=== PATIENT | female | born 1950 | race American Indian/Alaskan Native ===

== ENCOUNTER 2016-06-07 18:50 | Emergency (ER) | payer MEDICARE, OTHER ==
[2016-06-07] MEDS ORDERED: XYLOCAINE 1% 20 mL INFILTRATI ONE (19:07)
[2016-06-07] MEDS ORDERED: TRIPLE ANTIBIOTIC TP ONE ×2 (19:07→21:32)
[2016-06-07] MEDS ORDERED: BOOSTRIX IM ONE ×2 (19:07→21:32)
[2016-06-07] MEDS ORDERED: ANCEF IM ONE (19:08)
--- NOTE | 2016-06-07 19:09 | Emergency Department Report ---
Entered by LORI PUCKETT, acting as scribe for EDMOND FERNÁNDEZ NP. Chief Complaint: Wound/Laceration Stated Complaint: RT HAND LACERATION/TABLE SAW Time Seen by Provider: 06/07/16 18:58 - HPI History of Present Illness: 65 y/o presents right index finger laceration that occured 1 hr ago using a tablesaw. Sx include pain but pt denies being on any blood thinners. Hx includes breast cancer that started in 2000 and was in remission in 2001. no neuro or focal deficits NAD VSS Ambulatory avulsed wound bleeding controlled - ROS Review of Systems: as noted in HPI - Exam Vital Signs: Vital Signs 06/07/16 18:52 Temperature 98.4 F Pulse Rate 100 H Blood Pressure 191/118 O2 Sat by Pulse 100 Oximetry Physical Exam: as noted in HPI MSE screening note: Focused history and physical exam performed. Due to findings the following was ordered: ED Disposition for MSE Condition: Stable This documentation as recorded by the scribe,LORI PUCKETT,accurately reflects the service I personally performed and the decisions made by ,EDMOND FERNÁNDEZ NP.
[2016-06-07] MEDS ORDERED: ANCEF ONE (21:32)
[2016-06-07] MEDS ORDERED: XYLOCAINE 1% 20 mL ONE (21:32)
[2016-06-07] MEDS ORDERED: NACL 0.9% 500 ML IR ONE ×2 (22:46→23:46)
[2016-06-07] MEDS ORDERED: VALIUM PO ONE (22:56)
[2016-06-07] MEDS ORDERED: NORCO 7.5/325 PO ONE (22:56)
--- NOTE | 2016-06-07 23:42 | Emergency Department Report ---
<DEBBIE HERRERA - Last Filed: 06/08/16 00:27> - General Chief Complaint: Laceration/Recheck/Suture Stated Complaint: RT HAND LACERATION/TABLE SAW Time Seen by Provider: 06/07/16 22:55 Source: patient Mode of arrival: Ambulatory Limitations: No Limitations - History of Present Illness Initial Comments: 65-year-old -[place] female comes in today for laceration to the right index finger after using a table saw. Patient reports that she was cutting with a table saw and her finger got in the way. Patient denies being on any blood thinner she denies being in diabetic. Was noted that her blood pressure was elevated in fast track. Patient is not up-to-date on her tetanus she has no other concerns at this time. Onset/Timin -: hour(s) - Related Data Previous Rx's Medication Instructions Recorded Last Taken Type HYDROcodone/APAP 5-325 [Foley 1 each PO Q6HR PRN #15 tablet 06/08/16 Unknown Rx 5/325] Sulfamethoxazole/Trimethoprim 1 each PO BID #20 tablet 06/08/16 Unknown Rx [Bactrim DS TAB] Allergies Allergy/AdvReac Type Severity Reaction Status Date / Time Penicillins Allergy Rash Verified 06/07/16 19:06 ED Review of Systems ROS: Stated complaint: RT HAND LACERATION/TABLE SAW Other details as noted in HPI Constitutional: denies: chills, fever Eyes: denies: eye pain, eye discharge, vision change ENT: denies: ear pain, throat pain Respiratory: denies: cough, shortness of breath, wheezing Cardiovascular: denies: chest pain, palpitations Endocrine: no symptoms reported Gastrointestinal: denies: abdominal pain, nausea, diarrhea Skin: change in hair/nails, other (cut to right index finger.) Neurological: denies: headache, weakness, paresthesias Psychiatric: denies: anxiety, depression Hematological/Lymphatic: denies: easy bleeding, easy bruising ED Past Medical Hx - Past Medical History Hx of Cancer: Yes (Breast CA 2000) Hx Arthritis: Yes - Surgical History Past Surgical History?: Yes Additional Surgical History: Lumpectomy, tubal ligation - Social History Smoking Status: Never Smoker Substance Use Type: None - Medications Home Medications: Home Medications Medication Instructions Recorded Confirmed Last Taken Type HYDROcodone/APAP 5-325 [Foley 1 each PO Q6HR PRN #15 tablet 06/08/16 Unknown Rx 5/325] Sulfamethoxazole/Trimethoprim 1 each PO BID #20 tablet 06/08/16 Unknown Rx [Bactrim DS TAB] ED Physical Exam - General Limitations: No Limitations General appearance: alert - Head Head exam: Present: atraumatic - Eye Eye exam: Present: normal appearance, PERRL, EOMI - ENT ENT exam: Present: mucous membranes moist - Cardiovascular Cardiovascular Exam: Present: regular rate, tachycardia, normal heart sounds - Skin Skin exam: Present: warm, other (avulsion laceration to the right index finger.) ED Course Vital Signs 06/07/16 06/08/16 18:52 00:50 Temperature 98.4 F Pulse Rate 100 H 72 Respiratory 20 Rate Blood Pressure 191/118 Blood Pressure 143/79 [Left] O2 Sat by Pulse 100 97 Oximetry - Laceration /Wound Repair Right Finger Wound Location: upper extremity Irrigated w/ Saline (ccs): 1 Betadine Prep?: Yes Anesthesia: 1% Lidocaine Volume Anesthetic (ccs): 9 Wound Debrided: moderate Wound Repaired With: sutures Suture Size/Type: 5:0 Number of Sutures: 4 Layer Closure?: No Sterile Dressing Applied?: Yes Progress: patient tolerated well. ED Medical Decision Making - Radiology Data Radiology results: report reviewed, image reviewed Impression of the right index finger acute comminuted fracture of the second distal phalangeal turf Arthritis of the wrist joint - Medical Decision Making Patient has been evaluated by this provider fast track as well as I had Dr. Whitehead evaluate patient's fingers well. Discussed with patient that she does have an avulsion fracture of the tip of the right index finger. Discussed the patient would do her best to approximate the tissue. Discussed the patient she does have a fracture. She has been given her tetanus as well as a dose of Ancef. Patient verbalized understanding Critical care attestation.: If time is entered above; I have spent that time in minutes in the direct care of this critically ill patient, excluding procedure time. ED Disposition Clinical Impression: Avulsion fracture of distal phalanx of finger, Laceration of finger nail bed Disposition: DISCHARGED TO HOME OR SELFCARE Is pt being admited?: No Does the pt Need Aspirin: No Condition: Stable Instructions: Suture Care (ED), Laceration (ED) Additional Instructions: He is taking antibiotics as prescribed. Please use a medication on a when necessary basis. Please do not operate heavy machinery while taken Foley pain medication. Follow up with orthopedic provider for further evaluation. Prescriptions: HYDROcodone/APAP 5-325 [Foley 5/325] 1 each PO Q6HR PRN #15 tablet PRN Reason: Pain Sulfamethoxazole/Trimethoprim [Bactrim DS TAB] 1 each PO BID #20 tablet Referrals: PRIMARY CAREMD [Primary Care Provider] - 3-5 Days JANES GEORGE MD [Staff Physician] - 3-5 Days [facility] [Provider Group] - 3-5 Days [facility] [Provider Group] - 3-5 Days [facility] [Provider Group] - 3-5 Days Forms: Accompanied Note, Work/School Release Form(ED) <STEFF WHITEHEAD - Last Filed: 06/08/16 02:49> ED Course - Consultations Consultation #1: 06/07/16 case was discussed with DR George. Recommend repair and outpatient follow-up and antibiotics
--- NOTE | 2016-06-08 00:02 | XRay Report ---
FINAL REPORT PROCEDURE: XR FINGER(S) 2 RT TECHNIQUE: RIGHT 2nd finger radiographs, including AP, lateral, and oblique views. HISTORY: r index partial amp; RIGHT HAND, 2ND DIGIT LACERATION COMPARISON: No prior studies are available for comparison. FINDINGS: Fracture (s) and/or Dislocation(s): A comminuted fracture is noted involving the distal phalangeal tuft of 2nd finger . Alignment: Normal. Joint space(s): Narrowing of the joint spaces is identified involving radiocarpal and intercarpal joints consistent with osteoarthritis. Soft tissues: There is moderate irregularity of the soft tissue outlines the consistent with laceration. Bone mineralization: Normal . Foreign bodies: None . IMPRESSION: Acute comminuted fracture of the 2nd distal phalangeal tuft Osteoarthritis of wrist joint
[2016-06-08 01:12] VITALS: BP 143/79
== END 2016-06-08 00:46 | disposition home or self-care (01) ==
LOC: ED 18:50
DX: S62.630A Displaced fracture of distal phalanx of right index finger, initial encounter for closed fracture (principal); S61.210A Laceration without foreign body of right index finger without damage to nail, initial encounter; M19.90 Unspecified osteoarthritis, unspecified site; C50.919 Malignant neoplasm of unspecified site of unspecified female breast; W45.8XXA Other foreign body or object entering through skin, initial encounter; Y93.89 Activity, other specified; Y99.8 Other external cause status; Y92.89 Other specified places as the place of occurrence of the external cause; Z88.0 Allergy status to penicillin
CPT/HCPCS: 12001; 73140; 90471; 90715; 96372; 99283; J0690; A6250